=== PATIENT | female | born 1985 | race African-American/Black ===

== ENCOUNTER 2017-04-07 09:57 | Emergency (ER) | payer MEDICAID ==
[2017-04-07 10:07] VITALS: BP 115/76; PULSE 80; RESP 18; TEMP 97.9; O2SAT 100
[2017-04-07 10:08] VITALS: BMI 26.2
--- NOTE | 2017-04-07 11:10 | ED PDOC ---
HPI: Chest Pain History Per: Patient (32yo female with no significant PMHx presents to ED complaining of episodic chest pain/tightness associated with anxiety for the past 2 months. She localizes the pain to her sternum, nonradiating, and states that it "feels tight." Chest discomfort usually lasts for 1-2 minutes that resolves spontaeously. Chest tightness associated with anxiety, palpatations and diaphoresis and not related to exertion. Denies any aggravating or alleviating factors On ROS, she mentions she has mild SOB related to extertional acivity and lying flat for the past 2 years that is unrelated to chest pain. ) History/Exam Limitations: no limitations Current Symptoms Are (Timing): Gone Now - Risk Factors PE Risk Factors: Neg: Extremity Immobilization/Fx, Venous Stasis, Estrogen Usage <Maribel Husain - Last Filed: 04/07/17 17:10> <Isaak Kurtz - Last Filed: 04/08/17 11:26> Time Seen by Provider: 04/07/17 10:19 Chief Complaint (Nursing): Chest Pain Supervising Attending Note - Supervising Attending Note The Documented history was done by the: Physician Sales Contract Administrator, Attending Physician The documented physical exam was done by the: Physician Sales Contract Administrator, Attending Physician The documented procedures were done by the: Physician Sales Contract Administrator, Attending Physician - Attestation: I have personally seen and examined this patient.: Yes I have fully participated in the care of the patient.: Yes I have reviewed all pertinent clinical information: Yes <Isaak Kurtz - Last Filed: 04/08/17 11:26> Past Medical History - Medical History PMH: GERD Denies: AMI-NSTEMI, Asthma, Diabetes, Deep Vein Thrombosis, HTN, Hyperthyroidism, Peripheral Edema, Sleep Apnea - Surgical History Surgical History: Denies: No Surg Hx - Family History Family History: States: No Known Family Hx Other Family History: Mother-HTN - Living Arrangements Living Arrangements: With Family (Lives with mother and children) - Social History Current smoker - smoking cessation education provided: No Alcohol: None Drugs: Denies <Maribel Husain - Last Filed: 04/07/17 17:10> Reviewed: Historical Data, Nursing Documentation, Vital Signs <Isaak Kurtz - Last Filed: 04/08/17 11:26> Vital Signs: Last Vital Signs Temp 97.9 F 04/07/17 10:06 Pulse 80 04/07/17 10:06 Resp 18 04/07/17 10:06 BP 115/76 04/07/17 10:06 Pulse Ox 100 04/07/17 17:11 - Allergies Allergies/Adverse Reactions: Allergies Allergy/AdvReac Type Severity Reaction Status Date / Time No Known Allergies Allergy Verified 04/07/17 10:12 JUWAN Risk Score for UA/NSTEMI - JUWAN Risk Score Age > 64: NO 3 or more CAD Risk Factors: NO Known CAD (Stenosis greater than 50%): NO Aspirin use in past 7 days: NO Severe Angina: NO EKG ST changes greater than 0.5mm: NO Positive Cardiac Marker: NO JUWAN Score: 0 Risk %: 5% <Maribel Husain - Last Filed: 04/07/17 17:10> Wells Criteria for PE - Wells Criteria for Pulmonary Embolism Clinical Signs and Symptoms of DVT: No P.E is #1 Diagnosis, or Equally Likely: No Heart Rate >100: No Immobilization at least 3 days;Surgery previous 4 weeks: No Previous, objectively diagnosed PE or DVT: No Hemoptysis: No Malignancy w/treatment within 6 months, or palliative: No Total Score: 0 <Maribel Husain - Last Filed: 04/07/17 17:10> Review of Systems ROS Statement: Except As Marked, All Systems Reviewed And Found Negative Constitutional: Negative for: Fever, Chills ENT: Negative for: Throat Pain Cardiovascular: Negative for: Edema, Light Headedness Gastrointestinal: Negative for: Nausea, Vomiting, Abdominal Pain, Diarrhea, Constipation Musculoskeletal: Negative for: Shoulder Pain, Arm Pain Skin: Negative for: Rash Psych: Positive for: Anxiety. Negative for: Depression, Suicidal ideation <Maribel Husain - Last Filed: 04/07/17 17:10> Physical Exam - Reviewed Nursing Documentation Reviewed: Yes Vital Signs Reviewed: Yes - Physical Exam Appears: Positive for: Well, Non-toxic, No Acute Distress Head Exam: Positive for: ATRAUMATIC, NORMAL INSPECTION, NORMOCEPHALIC Skin: Positive for: Normal Color, Warm, DRY Eye Exam: Positive for: EOMI, Normal appearance, PERRL ENT: Positive for: Normal ENT Inspection Neck: Positive for: Normal, Painless ROM Cardiovascular/Chest: Positive for: Regular Rate, Rhythm. Negative for: Chest Non Tender (Tenderness to palpation over Left sternal area), Edema, JVD, Murmur , Tachycardia, Friction Rub Respiratory: Positive for: Normal Breath Sounds. Negative for: Accessory Muscle Use, Crackles, Rales, Stridor, Wheezing Gastrointestinal/Abdominal: Positive for: Normal Exam, Bowel Sounds, Soft Back: Positive for: Normal Inspection Extremity: Positive for: Normal ROM. Negative for: Pedal Edema, Calf Tenderness , Swelling Neurologic/Psych: Positive for: Alert, Oriented <Maribel Husain - Last Filed: 04/07/17 17:10> - Laboratory Results Result Diagrams: 04/07/17 11:00 04/07/17 11:00 - ECG ECG: Positive for: Interpreted By Me (Normal Sinus Rythm; No ischemic changes) O2 Sat by Pulse Oximetry: 100 <Maribel Husain - Last Filed: 04/07/17 17:10> - Laboratory Results Result Diagrams: 04/07/17 11:00 04/07/17 11:00 <Isaak Kurtz - Last Filed: 04/08/17 11:26> - Progress ED Course And Treament: EKG CBC BNP Troponin TSH CXray (Maribel Husain) Disposition <Maribel Husain - Last Filed: 04/07/17 17:10> - Patient ED Disposition Is Patient to be Admitted: No Doctor Will See Patient In The: Office Counseled Patient/Family Regarding: Studies Performed, Diagnosis, Need For Followup - Disposition Disposition: Routine/Home Disposition Time: 12:59 <Isaak Kurtz - Last Filed: 04/08/17 11:26> - Clinical Impression Clinical Impression: Chest pain - Disposition Referrals: [facility] [Outside] Condition: GOOD Additional Instructions: Take advil for pain. Follow up with your PCP in 2-3 days. Return for worsening. Instructions: Chest Pain (ED) Forms: [facility] ED School/Work Excuse
[2017-04-07 11:15] LABS: BASO # 0.1 K/uL (0.0-0.2); EOS # 0.4 K/uL (0.0-0.7); EOS % 4.3 % (0.0-4.0); HEMATOCRIT 39.2 % (34.0-47.0); LYMPH # 3.5 K/uL (1.0-4.3); LYMPH % 35.3 % (20.0-40.0); MEAN CORPUSCULAR HEMOGLOBIN 31.6 pg (27.0-31.0); MEAN PLATELET VOLUME 9.8 fl (7.2-11.7); MONO # 0.7 K/uL (0.0-0.8); MONO % 6.7 % (0.0-10.0); NEUT # 5.2 K/uL (1.8-7.0); NEUT % 52.7 % (50.0-75.0); NRBC % 0.1 % (0.0-0.0); RED CELL DISTRIBUTION WIDTH 13.2 % (11.5-14.5); WHITE BLOOD COUNT 9.9 K/uL (4.8-10.8)
[2017-04-07 11:24] LABS: BLOOD UREA NITROGEN 13 mg/dl (7-17); CALCIUM 9.7 mg/dL (8.4-10.2); CARBON DIOXIDE 23 mmol/L (22-30); CHLORIDE 107 mmol/L (98-107); GFR AFRICAN-AMERICAN > 60; GLUCOSE,RANDOM 87 mg/dL (65-105); POTASSIUM 3.9 MMOL/L (3.6-5.0); SODIUM 141 mmol/l (132-148)
--- NOTE | 2017-04-07 12:13 | RAD ---
HISTORY: chest pain COMPARISON: No prior. TECHNIQUE: Chest PA and lateral FINDINGS: LUNGS: There appears to be some very minimal linear atelectasis the left mid lung field. PLEURA: No significant pleural effusion identified. No pneumothorax apparent. CARDIOVASCULAR: Normal. OSSEOUS STRUCTURES: No significant abnormalities. VISUALIZED UPPER ABDOMEN: Normal. OTHER FINDINGS: None. IMPRESSION: Minimal linear atelectasis left mid lung field
--- NOTE | 2017-04-07 20:45 | CARD ---
APPROVED REPORT EKG Measurement Heart [id number] <Conclusion> Normal sinus rhythm Normal ECG
== END 2017-04-07 13:55 | disposition home or self-care (01) ==
LOC: H.ER 09:57
DX: R07.9 Chest pain, unspecified (principal); K21.9 Gastro-esophageal reflux disease without esophagitis